=== PATIENT | male | born 1960 | race Caucasian/White ===

== ENCOUNTER 2017-11-15 12:21 | Emergency (ER) | payer OTHER, MEDICAID, SELFPAY ==
[2017-11-15 12:28] VITALS: BP 123/70; PULSE 96; RESP 14; TEMP 36.7; O2SAT 100; BMI 22.4
--- NOTE | 2017-11-15 13:14 | ED.BACK ---
HPI - Back Pain/Injury <BLADIMIR Cole - Last Filed: 11/15/17 21:14> General Chief Complaint: Back Pain/Injury Stated Complaint: 'back trouble' Time Seen by Provider: 11/15/17 12:31 History of Present Illness HPI Narrative: 57-year-old male with history of djd in the lumbar region here for complaint of pain into his lower back that started yesterday. He denies any trauma to the lower back. He reports worsening pain this morning after he got up. Pain radiates down into his left buttocks and left posterior thigh. He states he normally takes gabapentin however he ran out of his prescription. He is currently waiting to get into primary care as he recently moved into the area with Dr. Rankin. He denies any loss of bladder or bowel control. Patient is ambulatory into the emergency room. Related Data Home Medications Medication Instructions Recorded Confirmed gabapentin 800 mg PO TID #0 09/12/17 11/15/17 Previous Rx's Medication Instructions Recorded clonazepam 0.5 mg tablet 1 mg PO TIDP PRN #30 tab 10/12/17 cyclobenzaprine 10 mg PO TID PRN #20 tab 11/15/17 gabapentin 800 mg PO TID #30 tab 11/15/17 hydrocodone-acetaminophen 1 tab PO Q6H PRN #10 tab 11/15/17 prednisone 40 mg PO DAILY #8 tab 11/15/17 Allergies Allergy/AdvReac Type Severity Reaction Status Date / Time Penicillins [PENICILLINS] Allergy Severe swelling Verified 10/12/17 12:30 tramadol [TRAMADOL] Allergy Severe seizures Verified 10/12/17 12:30 diphenhydramine AdvReac Severe severe Verified 10/12/17 12:30 [From BENADRYL] itching Review of Systems <BLADIMIR Cole - Last Filed: 11/15/17 21:14> Constitutional Denies chills, Denies fever(s), Denies lethargy and Denies weakness Eyes Denies change in vision, Denies eye discharge, Denies irritation and Denies loss of vision ENT Ears, Nose, Mouth, and Throat: Denies change in voice, Denies neck pain and Denies sore throat Cardiovascular Denies chest pain, Denies irregular heart rhythm, Denies lightheadedness, Denies palpitations, Denies dyspnea, Denies dyspnea on exertion and Denies orthopnea Respiratory Denies cough, Denies dyspnea, Denies dyspnea on exertion and Denies wheezing Gastrointestinal Gastrointestinal: Denies abdominal pain, Denies change in bowel habits, Denies diarrhea, Denies nausea and Denies vomiting Genitourinary Denies hematuria, Denies flank pain, Denies urinary incontinence and Denies urinary urgency Musculoskeletal Reports back pain and Denies neck pain Integumentary/Breasts Denies pruritus, Denies erythema, Denies rash and Denies wounds Neurologic Denies confusion, Denies loss of vision and Denies weakness Psychiatric Denies anxiety, Denies confusion, Denies depression, Denies homicidal ideation and Denies suicidal ideation Endocrine Denies palpitations Allergic/Immunologic Denies wheezing Exam <BLADIMIR Cole - Last Filed: 11/15/17 21:14> Initial Vital Signs Initial Vital Signs: Vital Signs Temperature 98.1 F 11/15/17 12:28 Pulse Rate 96 H 11/15/17 12:28 Respiratory Rate 14 11/15/17 12:28 Blood Pressure 123/70 H 11/15/17 12:28 Pulse Oximetry 100 11/15/17 12:28 Const General: cooperative and well developed Nutritional Appearance: well nourished Orientation: alert, awake, oriented x3 and not confused HENMT Mouth: oral mucosae normal and moist mucous membranes Eyes Eyelids: eyelids normal Conjunctivae: conjunctivae normal Sclera: sclerae normal Pupils: PERRL Resp Effort & Inspection: normal respiratory effort, able to speak in complete sentences, no respiratory distress and no use of accessory muscles Auscultation: clear to auscultation bilaterally, no rales, no rhonchi and no wheezes Cardio Rate: regular rate Rhythm: regular rhythm Heart Sounds: no click, no gallops, no murmurs and no rubs Back/Spine/Pelvis Thoracic/Lumbar Spine: paraspinal tenderness Other: Tenderness to bilateral lumbar paraspinals with muscle spasm. Tenderness radiates to left buttocks left posterior thigh. Distal sensation is intact bilaterally. Distal range of motion is intact bilaterally. No deformities. Skin General: no rashes or lesions noted, No jaundice and No petechiae <Jamal Spring DO - Last Filed: 11/16/17 07:09> Initial Vital Signs Initial Vital Signs: Vital Signs Temperature 98.1 F 11/15/17 12:28 Pulse Rate 96 H 11/15/17 12:28 Respiratory Rate 14 11/15/17 12:28 Blood Pressure 123/70 H 11/15/17 12:28 Pulse Oximetry 100 11/15/17 12:28 Course <BLADIMIR Cole - Last Filed: 11/15/17 21:14> Vital Signs - 8 hr 11/15/17 15:02 Pulse Rate 84 Respiratory Rate 18 Blood Pressure [Right Arm] 112/95 H Pulse Oximetry 99 <Jamal Spring DO - Last Filed: 11/16/17 07:09> Vital Signs - 8 hr 11/15/17 15:02 Pulse Rate 84 Respiratory Rate 18 Blood Pressure [Right Arm] 112/95 H Pulse Oximetry 99 MDM - Back Pain/Injury <BLADIMIR Cole - Last Filed: 11/15/17 21:14> MDM Narrative Medical decision making narrative: Signs and symptoms presents as exacerbation of chronic lower back pain with left sciatica. He is prescribed cyclobenzaprine, and short course of prednisone along with [id number] ibuprofen. Refill of his gabapentin is placed along with small amount of [place] also refill. He is encouraged to follow up with primary care provider this week. For any worsening symptoms return to the emergency room. Discharge Plan Departure Patient Disposition: Home, Self-Care Clinical Impression: Lower back pain Discharge Date/Time: 11/15/17 15:03 Interventions: ED Discharge Assessment Last Done: 11/15/17 14:58 Instructions: DI for Low Back Pain Activity Restrictions/Additional Instructions: Signs and symptoms presents as exacerbation of lower back pain with sciatica. You have been placed on a muscle relaxer called cyclobenzaprine along with a short course of prednisone to help with anti inflammatory effects. Use [id number] ibuprofen as needed for any discomfort. Refill of her gabapentin has been placed. Small amount of [place] as refill has been prescribed to use as directed do not use in conjunction with cyclobenzaprine. Try to follow up with primary care provider this week for any worsening symptoms return to the emergency room. Prescriptions: New cyclobenzaprine 10 mg tablet 10 mg PO TID PRN (Reason: muscle spasm) Qty: 20 RF: 0 prednisone 20 mg tablet 40 mg PO DAILY Qty: 8 RF: 0 hydrocodone-acetaminophen 10-325 mg tablet 1 tab PO Q6H PRN (Reason: pain) Qty: 10 RF: 0 gabapentin 800 mg tablet 800 mg PO TID Qty: 30 RF: 0 No Action clonazepam [Klonopin] 0.5 mg tablet 1 mg PO TIDP PRN (Reason: anxiety) Qty: 30 RF: 0 gabapentin 800 MG tablet 800 mg PO TID Qty: 0 RF: 0 Referrals: Diane Rankin DO [Primary Care Provider] -
--- NOTE | 2017-11-15 14:31 | PC.NURSE ---
States he has a burning sensation in his lower back that runs down his left leg and it feels like there is a cord running down the back of his left leg pulling up on his foot. Has been on gabapentin for 8 years and ran out 2 weeks ago - has an appointment in January with a specialist and is trying to re establish a PCP.
[2017-11-15 15:02] VITALS: BP 112/95; PULSE 84; RESP 18; O2SAT 99
== END 2017-11-15 15:03 | disposition home or self-care (01) ==
PROVIDERS: Emergency Provider Nurse Practitioner Family; PCP Family Medicine
DX: M54.5 Low back pain (principal)
CPT/HCPCS: 99282